=== PATIENT | male | born 1970 | race African-American/Black ===

== ENCOUNTER 2019-04-21 15:27 | Observation (INO) | payer SELFPAY ==
[~2019-04-21] VITALS: Ht 182.9 cm; Wt 60.0 kg
[2019-04-21 15:59] LABS: BASO % 0 % (0-3); EOS % 0 % (0-3); HEMATOCRIT 44.8 % (39.0-53.0); HEMOGLOBIN 15.3 g/dL (13.0-17.5); LYMPH # 1.5 x10^3/uL (1.0-4.8); LYMPH % 11 % (24-48); MEAN CORPUSCULAR HEMOGLOBIN 32 pg (25-35); MEAN CORPUSCULAR HGB CONC 34 g/dL (31-37); MEAN CORPUSCULAR VOLUME 93 fL (79-100); MONO # 1.1 x10^3/uL (0.0-1.1); MONO % 8 % (0-9); NEUT # 10.9 x10^3/uL (1.8-7.7); NEUT % 81 % (31-73); PLATELET COUNT 223 x10^3/uL (140-400); RED BLOOD COUNT 4.84 x10^6/uL (4.30-5.70); RED CELL DISTRIBUTION WIDTH 14.8 % (11.5-14.5); WHITE BLOOD COUNT 13.6 x10^3/uL (4.0-11.0)
[2019-04-21] MEDS ORDERED: IV NORMAL SALINE 1000ML BAG 1,000 ML IV ONE (16:00)
[2019-04-21 16:08] LABS: CALCIUM 8.6 mg/dL (8.5-10.1); CREATININE 1.7 mg/dL (0.7-1.3); GFR 42.9; POTASSIUM 3.8 mmol/L (3.5-5.1); PROTHROMBIN TIME PATIENT 13.2 SEC (11.7-14.0)
[2019-04-21 16:12] LABS: ACETAMIN < 2 mcg/ml (10-30); ETHANOL < 10 mg/dL (0-10); SALIC 3.5 mg/dL (2.8-20.0)
[2019-04-21 16:12] LABS: AMPHETAMINE/METHAMPHETAMINE NEG (NEG); BARBITURATES NEG (NEG); BENZODIAZEPINES POS (NEG); CANNABINOIDS NEG (NEG); COCAINE NEG (NEG); METHADONE NEG (NEG); OPIATES NEG (NEG); PHENCYCLIDINE NEG (NEG)
[2019-04-21 16:22] LABS: ALBUMIN 3.7 g/dL (3.4-5.0); ALBUMIN/GLOBULIN RATIO 0.9 (1.0-1.7); TOTAL BILIRUBIN 0.3 mg/dL (0.2-1.0); TOTAL PROTEIN 7.7 g/dL (6.4-8.2)
[2019-04-21 16:23] VITALS: BP 133/103
[2019-04-21] MEDS ORDERED: levETIRAcetam 1,000 MG in IV DEXTROSE 5% 100ML 100 ML IV ONE (17:45)
--- NOTE | 2019-04-21 17:56 | PHYS DOC ---
Past Medical History Past Medical History: Seizure Past Surgical History: Other Additional Past Surgical Histo: UNKNOWN Smoking Status: Unknown if ever smoked Alcohol Use: Occasionally Additional Information: UNKNOWN Adult General Chief Complaint Chief Complaint: ALTERED MENTAL STATUS/SEIZURE ACTIVITIES. HPI HPI Patient is a 48 year old male who was brought here by EMS from home due to seizure activities. PER report, patient has history of seizure activities but was never had a complete work up for his seizure activities. His said he had more than 3 episodes of seizure activities today. EMS was called, found him to be very confused and was witnessed having another seizure. Patient was given 10 mg of versed intranasally by EMS and that calmed him down. Patient's family was not here. History was very limited. Upon arrival to the ER, patient was somnolent ...no seizure activities observed. Review of Systems Review of Systems Not able to obtain because of patient uncooperative nature. Current Medications Current Medications Current Medications Medications (Trade) Dose Ordered Sig/Amaury Start Time Stop Time Status Last Admin Dose Admin Albuterol/ Ipratropium (Duoneb) 3 ml RTQID 04/21/19 20:00 04/22/19 19:59 Cancel Levetiracetam 1000 mg/Dextrose 110 ml @ 440 mls/hr 1X ONCE 04/21/19 17:45 04/21/19 17:59 DC Lorazepam (Ativan Inj) 2 mg 1X ONCE 04/21/19 17:00 04/21/19 17:01 DC 04/21/19 17:09 2 MG Methylprednisolone Sodium Succinate (SOLU-Medrol 125MG VIAL) 125 mg 1X ONCE 04/21/19 18:15 04/21/19 18:16 Cancel Ondansetron HCl (Zofran) 4 mg PRN Q8HRS PRN 04/21/19 18:15 04/22/19 18:14 Sodium Chloride 1,000 ml @ 75 mls/hr [id number] 04/21/19 18:06 04/22/19 18:05 Allergies Allergies Allergies Coded Allergies Type Severity Reaction Last Updated Verified Unable to Assess 04/21/19 No Physical Exam Physical Exam Constitutional: Well developed, well nourished, appeared somnolents, snoring from VERSED. non-toxic appearance. [] HENT: Normocephalic, atraumatic, bilateral external ears normal, oropharynx moist, no oral exudates, nose normal. [] Eyes: PERRLA, EOMI, conjunctiva normal, no discharge. [] Neck: Normal range of motion, no tenderness, supple, no stridor. [] Cardiovascular:Heart rate regular rhythm, no murmur [] Lungs & Thorax: Bilateral breath sounds clear to auscultation [] Abdomen: Bowel sounds normal, soft, no tenderness, no masses, no pulsatile masses. [] Skin: Warm, dry, no erythema, no rash. [] Back: No tenderness, no CVA tenderness. [] Extremities: No tenderness, no cyanosis, no clubbing, ROM intact, no edema. [] Neurologic: SOMNOLENT, RESPONSIVE TO PAIN, HE WAS OBSERVED MOVING ALL EXTREMITIES. Psychologic: Not able to evaluate due to noncooperative stage. Current Patient Data Vital Signs Vital Signs Date Time Temp Pulse Resp B/P (MAP) Pulse Ox O2 Delivery O2 Flow Rate FiO2 04/21/19 17:12 100.6 100.6 04/21/19 15:27 119 24 133/72 (92) 99 Room Air Lab Values Laboratory Tests Test 04/21/19 15:33 04/21/19 15:58 White Blood Count 13.6 x10^3/uL (4.0-11.0) H Red Blood Count 4.84 x10^6/uL (4.30-5.70) Hemoglobin 15.3 g/dL (13.0-17.5) Hematocrit 44.8 % (39.0-53.0) Mean Corpuscular Volume 93 fL (79-100) Mean Corpuscular Hemoglobin 32 pg (25-35) Mean Corpuscular Hemoglobin Concent 34 g/dL (31-37) Red Cell Distribution Width 14.8 % (11.5-14.5) H Platelet Count 223 x10^3/uL (140-400) Neutrophils (%) (Auto) 81 % (31-73) H Lymphocytes (%) (Auto) 11 % (24-48) L Monocytes (%) (Auto) 8 % (0-9) Eosinophils (%) (Auto) 0 % (0-3) Basophils (%) (Auto) 0 % (0-3) Neutrophils # (Auto) 10.9 x10^3/uL (1.8-7.7) H Lymphocytes # (Auto) 1.5 x10^3/uL (1.0-4.8) Monocytes # (Auto) 1.1 x10^3/uL (0.0-1.1) Eosinophils # (Auto) 0.0 x10^3/uL (0.0-0.7) Basophils # (Auto) 0.0 x10^3/uL (0.0-0.2) Prothrombin Time 13.2 SEC (11.7-14.0) Prothrombin Time INR 1.0 (0.8-1.1) Activated Partial Thromboplast Time 27 SEC (24-38) Sodium Level 140 mmol/L (136-145) Potassium Level 3.8 mmol/L (3.5-5.1) Chloride Level 101 mmol/L (98-107) Carbon Dioxide Level 20 mmol/L (21-32) L Anion Gap 19 (6-14) H Blood Urea Nitrogen 9 mg/dL (8-26) Creatinine 1.7 mg/dL (0.7-1.3) H Estimated GFR (Cockcroft-Gault) 42.9 BUN/Creatinine Ratio 5 (6-20) L Glucose Level 127 mg/dL (70-99) H Calcium Level 8.6 mg/dL (8.5-10.1) Total Bilirubin 0.3 mg/dL (0.2-1.0) Aspartate Amino Transferase (AST) 37 U/L (15-37) Alanine Aminotransferase (ALT) 21 U/L (16-63) Alkaline Phosphatase 62 U/L (46-116) Creatine Kinase 2076 U/L (39-308) H Total Protein 7.7 g/dL (6.4-8.2) Albumin 3.7 g/dL (3.4-5.0) Albumin/Globulin Ratio 0.9 (1.0-1.7) L Salicylates Level 3.5 mg/dL (2.8-20.0) Salicylate Last Dose Date Salicylate Last Dose Time Acetaminophen Level < 2 mcg/ml (10-30) L Acetaminophen Last Dose Date Acetaminophen Last Dose Time Ethyl Alcohol Level < 10 mg/dL (0-10) Urine Opiates Screen Neg (NEG) Urine Methadone Screen Neg (NEG) Urine Barbiturates Neg (NEG) Urine Phencyclidine Screen Neg (NEG) Urine Amphetamine/Methamphetamine Neg (NEG) Urine Benzodiazepines Screen Pos (NEG) Urine Cocaine Screen Neg (NEG) Urine Cannabinoids Screen Neg (NEG) Urine Ethyl Alcohol Neg (NEG) Laboratory Tests 04/21/19 15:33 Laboratory Tests 04/21/19 15:33 EKG EKG [] Radiology/Procedures Radiology/Procedures [] Course & Med Decision Making Course & Med Decision Making Pertinent Labs and Imaging studies reviewed. (See chart for details) Patient was still very confused, had prolonged postictal stage. He will not follow command, attempted to get out of bed, being naked. He was given 2 mg of ATIVAN so he can be sedated in hope that we can get A CT SCAN OF HEAD DONE TODAY. Per report, patient has have many episodes of seizure activities today. He was never been worked up extensively about his seizure condition. Thus we will keep him in the hospital today, will consult Neurology for recommendation. Patient was loaded with 1000 mg of KEPPRA IV IN THE ER. Dragon Disclaimer Dragon Disclaimer This electronic medical record was generated, in whole or in part, using a voice recognition dictation system. Departure Departure Impression: Primary Impression: Seizure Disposition: ADMITTED INPATIENT Admitting Physician: ALEC (Dr. Contreras) Referrals: UNKNOWN PCP NAME (PCP) CHRISTINE UP DO Apr 21, 2019 17:56
[2019-04-21] MEDS ORDERED: ONDANSETRON PF 4 MG/2 ML VIAL. IV PRN ×2 (18:00→18:15)
[2019-04-21] MEDS ORDERED: IV NORMAL SALINE 1000ML BAG 1,000 ML IV SCH (18:06)
[2019-04-21] MEDS ORDERED: methylPREDNISolone SOD SUCC PF 125 MG/2 ML VIAL. IV ONE (18:15)
[2019-04-21] MEDS ORDERED: IPRATRPIUM/ALBUTEROL 0.5/2.5MG 3 ML NEBU. NEB SCH (20:00)
--- NOTE | 2019-04-22 05:21 | EKG ---
[facility] [address] [place] [address] Test Date: 2019-04-21 Test Time: 19:49:50 Pat Name: BHUMIKA CASAS Department: Room: Gender: M Fashion Merchandiser: : 1970 Requested By: CHRISTINE UP Order Number: [id number] Reading MD: Measurements Intervals [place] Rate: 89 P: 67 NC: 142 QRS: 46 QRSD: 78 T: 61 QT: 328 QTc: 400 Interpretive Statements SINUS RHYTHM NORMAL ECG RI6.01 No previous ECG available for comparison
== END 2019-04-22 01:11 | disposition left against medical advice (07) ==
LOC: ER 15:27 → ED HOLD 18:00
PROVIDERS: ADMIT Internal Medicine; ATTEND Internal Medicine
DX: R56.9 Unspecified convulsions (principal); R41.82 Altered mental status, unspecified
CPT/HCPCS: 36415; 80053; 80307; 80329; 82550; 85025; 85610; 85730; 93005; 96361; 96374; 96375; 96376; 99284; G0378; G0480; J1953; J2060; J7030; J7060; G0379